=== PATIENT | male | born 1950 | race Caucasian/White ===

== ENCOUNTER 2017-04-16 22:30 | Emergency (ER) | payer MEDICARE, BC ==
[~2017-04-16] VITALS: Ht 180.3 cm; Wt 81.6 kg
[2017-04-16 22:58] VITALS: BP 133/79
[2017-04-16] MEDS ORDERED: TDAP [DIPH/PERTUSSIS/TET] 0.5 ML VIAL IM ONE ×2 (23:30→23:34)
== END 2017-04-16 23:59 | disposition home or self-care (01) ==
LOC: ER 22:39
DX: S40.012A Contusion of left shoulder, initial encounter (principal); S60.512A Abrasion of left hand, initial encounter; S80.811A Abrasion, right lower leg, initial encounter; S80.812A Abrasion, left lower leg, initial encounter; W01.0XXA Fall on same level from slipping, tripping and stumbling without subsequent striking against object, initial encounter; Y92.89 Other specified places as the place of occurrence of the external cause; Y93.89 Activity, other specified; Y99.8 Other external cause status
CPT/HCPCS: 90471; 90715; 99283; A4606 ×2; Z7610